=== PATIENT | female | born 1945 | race Caucasian/White ===

== ENCOUNTER → 2018-03-26 | Outpatient (CLI) | payer MEDICARE ==
--- NOTE | 2018-03-27 07:44 | MM ---
Reason for exam: additional evaluation requested from prior study. Last mammogram was performed 1 year and 1 month ago. History: Patient is postmenopausal and has history of breast cancer at age 64. Malignant right breast needle localzation of the right breast, November 07, 2009. Lumpectomy of the right breast, November 07, 2009. Malignant US right guided VAD of the right breast, October 06, 2009. Chemotherapy, 2009. Radiation therapy of the right breast, 2009. Took hormonal contraceptives for 11 years beginning at age 20. Physical Findings: Nurse did not find any significant physical abnormalities on exam. MG 3D Diag Mammo W/Cad [facility] Bilateral CC and MLO view(s) were taken. Prior study comparison: February 13, 2017, bilateral MG 3d diag mammo w/cad [facility]. August 03, 2016, bilateral MG 3d diag mammo w/cad [facility]. The breast tissue is heterogeneously dense. This may lower the sensitivity of mammography. Stable benign calcifications. There is chronic nodularity bilaterally. There is no dominant lesion. No significant new findings when compared with previous films. These results were verbally communicated with the patient and result sheet given to the patient on 03/26/18. ASSESSMENT: Benign, BI-RAD 2 RECOMMENDATION: Routine screening mammogram of both breasts in 1 year.
== END | disposition home or self-care (01) ==
LOC: RADMAMWWP 14:54
PROVIDERS: ATTEND Internal Medicine Hematology & Oncology
DX: Z08 Encounter for follow-up examination after completed treatment for malignant neoplasm (principal); Z85.3 Personal history of malignant neoplasm of breast
CPT/HCPCS: 77066; G0279; 77062

== ENCOUNTER → 2020-05-13 | Outpatient (CLI) | payer MEDICARE ==
--- NOTE | 2020-05-13 11:54 | MM ---
Reason for exam: additional evaluation requested from prior study. Last mammogram was performed 1 year ago. History: Patient is postmenopausal and has history of breast cancer at age 64. Malignant right breast needle localzation of the right breast, November 07, 2009. Lumpectomy of the right breast, November 07, 2009. Malignant US right guided VAD of the right breast, October 06, 2009. Chemotherapy, 2009. Radiation therapy of the right breast, 2009. Took hormonal contraceptives for 11 years beginning at age 20. Physical Findings: Nurse did not find any significant physical abnormalities on exam. MG 3D Diag Mammo W/Cad WAY[facility] Bilateral CC and MLO view(s) were taken. Prior study comparison: May 07, 2019, bilateral MG 3d screening mammo w/cad. March 26, 2018, bilateral MG 3d diag mammo w/cad [facility]. There are scattered fibroglandular densities. There is chronic nodularity in the left breast. Post surgical and post therapy change left breast. Skin and trabecular thickening slightly increased, ultrasound recommended. Fat necrosis calcifications anterior right breast. These results were verbally communicated with the patient and result sheet given to the patient on 05/13/20. ASSESSMENT: Incomplete: need additional imaging evaluation, BI-RAD 0 RECOMMENDATION: Ultrasound of the right breast.
--- NOTE | 2020-05-13 11:55 | USB ---
Reason for exam: additional evaluation requested from abnormal screening. History: Patient is postmenopausal and has history of breast cancer at age 64. Malignant right breast needle localzation of the right breast, November 07, 2009. Lumpectomy of the right breast, November 07, 2009. Malignant US right guided VAD of the right breast, October 06, 2009. Chemotherapy, 2009. Radiation therapy of the right breast, 2009. Took hormonal contraceptives for 11 years beginning at age 20. US Breast RT Right complete breast ultrasound includes all four quadrants, the retroareolar region and axilla. Finding demonstrates a 1.8 x 0.3 x 0.6cm calcification see at 12 o'clock and skin thickening up to 8mm medially. No cystic or solid lesion seen. These results were verbally communicated with the patient and result sheet given to the patient on 05/13/20. ASSESSMENT: Benign, BI-RAD 2 RECOMMENDATION: Follow-up diagnostic mammogram of both breasts in 1 year. Manage on a clinical basis with regard to increasing skin thickening.
== END | disposition home or self-care (01) ==
LOC: RADMAMWWP 10:19
PROVIDERS: ATTEND Internal Medicine Hematology & Oncology
DX: R92.8 Other abnormal and inconclusive findings on diagnostic imaging of breast (principal); Z85.3 Personal history of malignant neoplasm of breast
CPT/HCPCS: 77066; 76641; G0279; 77062

== ENCOUNTER → 2021-02-03 | Outpatient (CLI) | payer MEDICARE ==
--- NOTE | 2021-02-03 16:49 | CTL ---
EXAMINATION TYPE: CT Low Dose Lung DATE OF EXAM ORDERED: 02/03/2021 HISTORY: 75-year-old female personal history of breast cancer, Z87.891, personal history of tobacco u se.. Lung cancer screening CT DLP: 73.[address] CTDI: 2.1 mGy Automated exposure control for dose reduction was used. SCREENING VISIT: Baseline COMPARISON: None TECHNIQUE: Low dose computed tomography scan was performed through the chest with coronal and sagitta l reconstructions. CT DIAGNOSTIC QUALITY: Satisfactory FINDINGS: Heart normal size without pericardial effusion. Extensive three-vessel coronary artery calcifications are present. Mild aortic valve calcifications. Moderate atherosclerotic arch calcifications with conventional arch vessel branching anatomy. Mild ec karissa lower descending thoracic aorta 2.6 cm. Borderline to mildly enlarged caliber to the main right and left pulmonary arteries at 2.6 cm each orozco ggesting underlying pulmonary hypertension. Post surgical change right breast with surgical clips posteriorly and superiorly. No thoracic lymphad enopathy by CT size criteria. Biapical pleural-parenchymal scarring. 5 mm subpleural pulmonary nodule posterior right upper lobe, axial image 42 could represent additiona l scarring. Subpleural reticular change anterior right upper lobe likely post radiation therapy change.. Mild dif fuse bronchial wall thickening. Mild emphysematous change. No consolidation or pleural effusion. Visualized upper abdomen shows cholecystectomy clips and splenic artery calcifications. Bones: Mild degenerative disc disease and anterior endplate spondylosis midthoracic spine. IMPRESSION: 1. LungRADS 2, benign. Biapical pleural parenchymal scarring and 5 mm nodularity on the right likely additional scarring. 2. COPD with mild emphysema. Possible underlying pulmonary arterial hypertension. 3. CAD with extensive three-vessel coronary artery calcifications. 4. Postsurgical posttreatment change within the right breast and anterior subpleural reticulations th roughout the right lung likely post radiation therapy change. CT LUNG RAD AND CT CHEST RECOMMENDATION: Lung-Rad 2 Benign Appearance or Behavior: Continue annual sc reening with LDCT in 12 months. Recommend smoking cessation.
== END | disposition home or self-care (01) ==
LOC: RADCTMAIN 12:34
PROVIDERS: ATTEND Internal Medicine Hematology & Oncology
DX: Z12.2 Encounter for screening for malignant neoplasm of respiratory organs (principal); J98.4 Other disorders of lung; F17.210 Nicotine dependence, cigarettes, uncomplicated; J43.9 Emphysema, unspecified; I25.10 Atherosclerotic heart disease of native coronary artery without angina pectoris
CPT/HCPCS: 71271

== ENCOUNTER → 2021-05-23 | Outpatient (CLI) | payer MEDICARE ==
--- NOTE | 2021-05-24 08:39 | MM ---
Reason for exam: additional evaluation requested from prior study. Last mammogram was performed 1 year ago. History: Patient is postmenopausal and has history of breast cancer at age 64. Malignant right breast needle localzation of the right breast, November 07, 2009. Lumpectomy of the right breast, November 07, 2009. Malignant US right guided VAD of the right breast, October 06, 2009. Chemotherapy, 2009. Radiation therapy of the right breast, 2009. Took hormonal contraceptives for 11 years beginning at age 20. Physical Findings: Nurse did not find any significant physical abnormalities on exam. MG 3D Diag Mammo W/Cad [facility] Bilateral CC and MLO view(s) were taken. XCCL view(s) were taken of the left breast. Prior study comparison: May 13, 2020, bilateral MG 3d diag mammo w/cad [facility]. May 07, 2019, bilateral MG 3d screening mammo w/cad. There are scattered fibroglandular densities. There is chronic nodularity in the left breast. Stable post surgical and post therapy change right breast with secretory calcifications and areas of fat necrosis calcifications. No significant new findings when compared with previous films. These results were verbally communicated with the patient and result sheet given to the patient on 05/23/21. ASSESSMENT: Benign, BI-RAD 2 RECOMMENDATION: Routine screening mammogram of both breasts in 1 year.
== END | disposition home or self-care (01) ==
LOC: RADMAMWWP 13:39
PROVIDERS: ATTEND Internal Medicine Hematology & Oncology
DX: R92.1 Mammographic calcification found on diagnostic imaging of breast (principal); R92.8 Other abnormal and inconclusive findings on diagnostic imaging of breast; Z85.3 Personal history of malignant neoplasm of breast
CPT/HCPCS: 77066; G0279; 77062

== ENCOUNTER → 2022-04-02 | Outpatient (CLI) | payer MEDICARE ==
--- NOTE | 2022-04-02 09:51 | CTL ---
EXAMINATION TYPE: CT Low Dose Lung DATE OF EXAM: 04/02/2022 9:23 AM CLINICAL INDICATION:Female, 76 years old with history of Z87.891 personal hx tobacco use; Personal hi story of tobacco use. COMPARISON: 02/03/2021 TECHNIQUE: Multiple axial non-contrast scans were obtained from approximately the lung apices through the upper abdomen. Coronal and sagittal reformatted images were obtained. Low dose technique was uti lized. CT DLP: 63 mGycm, Automated exposure control for dose reduction was used. CT Contrast: Contrast used: None Oral contrast used: None FINDINGS: ======== Lack of intravenous contrast and low dose technique limits the evaluation of the vascular and soft ti ssue structures. LUNGS: No evidence of pulmonary fibrosis. No evidence of focal consolidation, pneumothorax or pleural effusion. Pleural scarring along the anterior right upper lung, similar to prior. Mild centrilobular emphysema changes are present. Nodules: RUL: Nodular density in the posterior right upper lung is unchanged and could represent atelectas is changes. RML: None. RLL: None. MICHELLE: None. LLL: None. AIRWAY: Patent and unremarkable. HEART: Size within normal limits. Moderate coronary artery atherosclerosis. MEDIASTINUM: No gross evidence of adenopathy. VASCULATURE: No aortic aneurysm. Atherosclerosis of the arterial vasculature. MUSCULOSKELETAL: No acute osseous abnormalities SOFT TISSUES/LYMPH NODES: Postsurgical changes to the right breast. There is skin thickening of the r ight breast. LOWER NECK: No significant findings. UPPER ABDOMEN: No significant findings. IMPRESSION: 1. No clinically significant pulmonary nodules. 2. Mild emphysema changes. CT LUNG RAD AND CT CHEST RECOMMENDATION: Lung-Rad 2 Benign Appearance or Behavior: Continue annual sc reening with LDCT in 12 months. S Modifier (other clinically significant findings): None Recommend smoking cessation (if current smoker), or continuation of smoking cessation (if prior smoke r). Annual screening for lung cancer with low-dose computed tomography is recommended in adults ages 55 to 77 years who have a 30 pack-year smoking history and currently smoke or have quit within the pa st 15 years. Screening should be discontinued once a person has not smoked for 15 years or develops a health problem that substantially limits life expectancy or the ability or willingness to have curat jose lung surgery. Lung rads 2021 [email or web address]
--- NOTE | 2022-04-03 10:58 | MM ---
Reason for Exam: Screening (asymptomatic). Last screening mammogram was performed 11 month(s) ago. Patient History: Menarche at age 18. First Full-Term at age 21. Hysterectomy at age 31. Postmenopausal. Breast cancer, right, age 64. Hormonal Contraceptives for 11 years from age 20 until age 31. 11/07/2009, Lumpectomy on the Right side. 11/07/2009, Malignant Excisional Biopsy on the right side. 10/06/2009, Malignant Core Biopsy on the right side. 2009, Chemotherapy. 2009, Radiation Therapy on the right side. Prior Study Comparison: 05/07/2019 Bilateral Screening Mammogram, [facility]. 05/13/2020 Bilateral Diagnostic Mammogram, [facility]. 05/23/2021 Bilateral Diagnostic Mammogram, [facility]. Tissue Density: There are scattered fibroglandular densities. Findings: Analyzed By CAD. There is no suspicious group of microcalcifications or new suspicious mass in either breast. Chronic nodularity in the left breast. Stable postsurgical and posttherapy changes of the right breast with secretory calcifications and area of fat necrosis calcifications. No significant change from prior exams. Overall Assessment: Benign, BI-RAD 2 Management: Screening Mammogram of both breasts in 1 year. A clinical breast exam by your physician is recommended on an annual basis and results should be correlated with mammographic findings. Electronically signed and approved by: Charles Evans D.O.
== END | disposition home or self-care (01) ==
LOC: RADCTMAIN 09:01
PROVIDERS: ATTEND Internal Medicine Hematology & Oncology
DX: Z12.31 Encounter for screening mammogram for malignant neoplasm of breast (principal); Z12.2 Encounter for screening for malignant neoplasm of respiratory organs; J43.2 Centrilobular emphysema; Z87.891 Personal history of nicotine dependence; Z78.0 Asymptomatic menopausal state; Z85.3 Personal history of malignant neoplasm of breast
CPT/HCPCS: 71271; 77063; 77067

== ENCOUNTER → 2023-04-11 | Outpatient (CLI) | payer MEDICARE ==
--- NOTE | 2023-04-11 13:23 | BD ---
EXAMINATION TYPE: Axial Bone Density DATE OF EXAM: 04/11/2023 CLINICAL HISTORY: 77 years old Female. ICD-10 CODE: M85.88 DISORDER OF BONE DENSITY Height: 59.8 Weight: 130 FRAX RISK QUESTIONS: Glucocorticoids (More than 3mos): yes (Ex: prednisone, prednisolone, methylprednisolone, dexamethasone, and hydrocortisone). Current Tobacco Use: yes RISK FACTORS HISTORY OF: Postmenopausal woman: yes, at age 48 yrs old Hyperparathyroidism: no Adrenal Insufficiency: no MEDICATIONS: Prednisone or other steroids: yes, for copd, asthma, for about 4 yrs Additional Medications: hx of chemo, hx of radiation, 2010, bp meds, cholesterol meds, Additional History: hx of left breast cancer lumpectomy, chemo and radiation, 2009, at 64 yrs old, hy pertension, copd, asthma, EXAM MEASUREMENTS: Bone mineral densitometry was performed using the [employer]. Bone mineral density as measured about the Lumbar spine is: ----- L1-L4(G/cm2): 1.065 T Score Values are as follows: ----- L1: -1.9 ----- L2: -1.3 ----- L3: -0.9 ----- L4: -0.2 ----- L1-L4: -1.0 Z Score Values are as follows: ----- L1: 0.1 ----- L2: 0.7 ----- L3: 1.1 ----- L4: 1.7 ----- L1-L4: 1.0 Bone mineral density is her baseline study. Bone mineral density about the R hip (g/cm2): 0.770 Bone mineral density about the L hip (g/cm2): 0.868 T Score values are as follows: -----R Neck: -2.2 -----L Neck: -1.2 -----R Total: -1.9 -----L Total: -1.1 Z Score values are as follows: -----R Neck: -0.1 -----L Neck: 0.9 -----R Total: 0.0 -----L Total: 0.8 Bone mineral density is a baseline study. FRAX%s: The graph provided illustrates a 25.0% chance for a major osteoporotic fx and a 11.8% chance for the hips probability for fx in 10 years time. IMPRESSION: Osteopenia (T Score between -2.5 and -1). There is slightly increased risk of fracture and the patient may be considered for treatment. Re-Screen 2-5 years. NOTE: T-SCORE=SD OF THE YOUNG ADULT MEAN.
--- NOTE | 2023-04-11 13:42 | CTL ---
EXAMINATION TYPE: CT Low Dose Lung DATE OF EXAM: 04/11/2023 12:29 PM CLINICAL INDICATION:Female, 77 years old with history of Z87.891 Personal Hx of tobacco use; personal history of nicotine dependence , history of tobacco use. COMPARISON: 04/02/2022. TECHNIQUE: Multiple axial non-contrast scans were obtained from approximately the lung apices through the upper abdomen. Coronal and sagittal reformatted images were obtained. Low dose technique was uti lized. CT DLP: 78.8 mGycm, Automated exposure control for dose reduction was used. CT Contrast: Contrast used: None Oral contrast used: None FINDINGS: ======== Lack of intravenous contrast and low dose technique limits the evaluation of the vascular and soft ti ssue structures. LUNGS: No evidence of pulmonary fibrosis. No evidence of focal consolidation, pneumothorax or pleural effusion. Pleural scarring along the anterior right upper lung, similar to prior. Mild centrilobular emphysema changes are present. Nodules: RUL: Nodular density in the posterior right upper lung is unchanged and could represent atelectas is changes. Unchanged right upper lung treatment changes to the periphery of the right middle and upp er lung. RML: None. RLL: None. MICHELLE: None. LLL: None. AIRWAY: Patent and unremarkable. HEART: Severe atherosclerosis of the arterial vasculature. The heart is mildly enlarged for size. MEDIASTINUM: No gross evidence of adenopathy. VASCULATURE: Atherosclerotic calcifications are present throughout the aorta and its branches. MUSCULOSKELETAL: No acute osseous abnormalities SOFT TISSUES/LYMPH NODES: Postprocedural changes of the right breast. LOWER NECK: No significant findings. UPPER ABDOMEN: The gallbladder surgically absent. IMPRESSION: 1. No clinically significant pulmonary nodules. 2. Mild emphysema changes. 3. Severe coronary artery atherosclerosis. CT LUNG RAD AND CT CHEST RECOMMENDATION: Lung-Rad 2 Benign Appearance or Behavior: Continue annual sc reening with LDCT in 12 months. S Modifier (other clinically significant findings): None Recommend smoking cessation (if current smoker), or continuation of smoking cessation (if prior smoke r). Annual screening for lung cancer with low-dose computed tomography is recommended in adults ages 55 to 77 years who have a 30 pack-year smoking history and currently smoke or have quit within the pa st 15 years. Screening should be discontinued once a person has not smoked for 15 years or develops a health problem that substantially limits life expectancy or the ability or willingness to have curat jose lung surgery. Lung rads 2021 [email or web address]
--- NOTE | 2023-04-12 18:51 | MM ---
Reason for Exam: Screening (asymptomatic). Last screening mammogram was performed 12 month(s) ago. Patient History: Menarche at age 18. First Full-Term at age 21. Hysterectomy at age 31. Postmenopausal. Breast cancer, right, age 64. Hormonal Contraceptives for 11 years from age 20 until age 31. 11/07/2009, Lumpectomy on the Right side. 11/07/2009, Malignant Excisional Biopsy on the right side. 10/06/2009, Malignant Core Biopsy on the right side. 2009, Chemotherapy. 2009, Radiation Therapy on the right side. Prior Study Comparison: 05/13/2020 Bilateral Diagnostic Mammogram, [facility]. 05/23/2021 Bilateral Diagnostic Mammogram, [facility]. 04/02/2022 Bilateral MG 3D screening mammo w/cad, [facility]. Tissue Density: There are scattered fibroglandular densities. Findings: Analyzed By CAD. Postsurgical and posttreatment change right breast. Benign bilateral secretory calcifications. Benign fat necrosis calcifications posteriorly on the right at the surgical site. There is no suspicious group of microcalcifications or new suspicious mass in either breast. Overall Assessment: Benign, BI-RAD 2 Management: Screening Mammogram of both breasts in 1 year. . Patient should continue monthly self-breast exams. A clinical breast exam by your physician is recommended on an annual basis. This exam should not preclude additional follow-up of suspicious palpable abnormalities. Electronically signed and approved by: Marquez Nava M.D. Radiologist
== END | disposition home or self-care (01) ==
LOC: RADCTMAIN 12:07
PROVIDERS: ATTEND Internal Medicine Hematology & Oncology
DX: Z12.31 Encounter for screening mammogram for malignant neoplasm of breast (principal); Z12.2 Encounter for screening for malignant neoplasm of respiratory organs; F17.210 Nicotine dependence, cigarettes, uncomplicated; M85.89 Other specified disorders of bone density and structure, multiple sites; J43.2 Centrilobular emphysema; I25.10 Atherosclerotic heart disease of native coronary artery without angina pectoris; Z78.0 Asymptomatic menopausal state
CPT/HCPCS: 71271; 77063; 77067; 77080

== ENCOUNTER → 2024-04-13 | Outpatient (CLI) | payer MEDICARE ==
--- NOTE | 2024-04-14 08:44 | MM ---
Reason for Exam: Screening (asymptomatic). Last screening mammogram was performed 12 month(s) ago. Patient History: Menarche at age 18. First Full-Term at age 21. Hysterectomy at age 31. Postmenopausal. Breast cancer, right, age 64. Hormonal Contraceptives for 11 years from age 20 until age 31. 11/07/2009, Lumpectomy on the Right side. 11/07/2009, Malignant Excisional Biopsy on the right side. 10/06/2009, Malignant Core Biopsy on the right side. 2009, Chemotherapy. 2009, Radiation Therapy on the right side. Prior Study Comparison: 05/23/2021 Bilateral Diagnostic Mammogram, [facility]. 04/02/2022 Bilateral MG 3D screening mammo w/cad, [facility]. 04/11/2023 Bilateral MG 3D screening mammo w/cad, [facility]. Tissue Density: There are scattered areas of fibroglandular density. Findings: Analyzed By CAD. Right breast surgical clips. Right breast: There is no suspicious group of microcalcifications or new suspicious mass. Benign-appearing calcifications right breast. Left breast: There is no suspicious group of microcalcifications or new suspicious mass. Overall Assessment: Benign, BI-RAD 2 Management: Screening Mammogram of both breasts in [address] [facility] will attempt to contact patient to return for supplemental views and ultrasound if indicated. Patient should continue monthly self-breast exams. A clinical breast exam by your physician is recommended on an annual basis. This exam should not preclude additional follow-up of suspicious palpable abnormalities. Note on Mayelin scores and lifetime risk: 1. A Mayelin score greater than 3% is considered moderate risk. If this is the case, consider specialist referral to assess eligibility for a risk reducing agent. 2. If overall lifetime risk for the development of breast cancer is 20% or higher, the patient may qualify for future screening with alternating mammogram and breast MRI. [facility], , 04/14/2024 8:41 AM. Electronically signed and approved by: Buddy Perla DO
== END | disposition home or self-care (01) ==
LOC: RADMAMWWP 13:06
PROVIDERS: ATTEND Internal Medicine Hematology & Oncology
DX: Z12.31 Encounter for screening mammogram for malignant neoplasm of breast (principal); Z78.0 Asymptomatic menopausal state; Z85.3 Personal history of malignant neoplasm of breast; R92.323 Mammographic fibroglandular density, bilateral breasts; Z98.82 Breast implant status
CPT/HCPCS: 77063; 77067

== ENCOUNTER → 2024-04-13 | Outpatient (CLI) | payer MEDICARE ==
--- NOTE | 2024-04-13 14:25 | CTL ---
EXAMINATION TYPE: CT Low Dose Lung DATE OF EXAM ORDERED: 04/13/2024 COMPARISON: CT Low Dose Lung 04/11/2023, 04/02/2022, 02/03/2021 CLINICAL INDICATION: Female, 78 years old with history of Z12.2 LUNG CA SCREEN F17.210 CURRENT SMOKER ; [facility], personal hx of nicotine dependence 1ppd X 58 years current smoker, Lung cancer screening, Hist ory of Smoking/tobacco use. TECHNIQUE: Low dose computed tomography scan was performed through the chest at 1 mm thick sections a nd reconstructed images in multiple planes at 1 mm and [address] DLP: 79.[address] CTDI: 2.1 mGy Automated exposure control for dose reduction was used. CT DIAGNOSTIC QUALITY: Satisfactory FINDINGS: Nodules: No clinically significant pulmonary nodules. LUNGS: COPD: Severity: Mild Fibrosis: Severity: Similar right anterior upper and middle lobe subpleural reticular scarring likely related to post treatment changes from radiation to the right breast. Lymph nodes: None Other findings: None RIGHT PLEURAL SPACE: Effusion: None Calcification: None Thickening: None Pneumothorax: None LEFT PLEURAL SPACE: Effusion: None Calcification: None Thickening: None Pneumothorax: None HEART: Heart Size: Normal Coronary Calcification: Moderate Pericardial Effusion: Small OTHER FINDINGS: Upper abdomen: None Bony thorax: Mild multilevel degenerative disc disease. Supraclavicular region: None Other: Atherosclerotic calcification of the aorta and its branches. Postsurgical change to the right breast redemonstrated. IMPRESSION: No clinically significant pulmonary nodules. CT LUNG RAD AND CT CHEST RECOMMENDATION: Lung-Rad 1 Negative: Continue annual screening with LDCT in 12 months. S Modifier (other clinically significant findings): None [facility], , 04/13/2024 2:23 PM
== END | disposition home or self-care (01) ==
LOC: RADCTMAIN 13:27
PROVIDERS: ATTEND Internal Medicine Hematology & Oncology
DX: Z12.2 Encounter for screening for malignant neoplasm of respiratory organs (principal); J44.9 Chronic obstructive pulmonary disease, unspecified; F17.210 Nicotine dependence, cigarettes, uncomplicated; I70.0 Atherosclerosis of aorta; I31.39 Other pericardial effusion (noninflammatory)
CPT/HCPCS: 71271